=== PATIENT | male | born 1970 | race African-American/Black ===

== ENCOUNTER 2018-09-28 10:18 | Emergency (ER) | payer BC ==
[~2018-09-28] VITALS: Ht 170.2 cm; Wt 75.0 kg
[2018-09-28 12:12] VITALS: BP 131/86
== END 2018-09-28 12:13 | disposition home or self-care (01) ==
LOC: ER 11:52
DX: L73.9 Follicular disorder, unspecified (principal); F12.10 Cannabis abuse, uncomplicated; F17.200 Nicotine dependence, unspecified, uncomplicated
CPT/HCPCS: 99283

== ENCOUNTER 2019-08-31 12:48 | Emergency (ER) | payer BC ==
[~2019-08-31] VITALS: Ht 165.1 cm; Wt 60.0 kg
[2019-08-31] MEDS ORDERED: ONDANSETRON HCL 4MG/2ML INJ IV ONE (17:00)
[2019-08-31] MEDS ORDERED: MORPHINE SULFATE 4 MG/ML CPJ (NOT FOR IM USE) IV ONE (17:00)
[2019-08-31 17:26] LABS: BASOPHILS % 1.2 % (0.0-2.0); EOSINOPHILS % 0.7 % (0.0-5.0); HEMATOCRIT. 42.7 % (42.0-52.0); HEMOGLOBIN. 14.7 g/dL (14.0-18.0); LYMPHOCYTES % 31.1 % (20.0-50.0); MEAN CORPUSCULAR HEMOGLOBIN 31.4 pg (28.0-32.0); MEAN CORPUSCULAR VOLUME 91.2 fL (80.0-94.0); MONOCYTES % 8.2 % (2.0-8.0); NEUTROPHILS % 58.8 % (40.0-76.0); PLATELET 449 x1000/uL (130-400); RED BLOOD CELL COUNT 4.69 mill/uL (4.7-6.1); RED CELL DISTRIBUTION WIDTH 13.5 % (11.6-14.6)
[2019-08-31 17:35] LABS: CHLORIDE 107 mEq/L (98-107)
[2019-08-31] MEDS ORDERED: GADOBENATE DIMEGLUMINE 529 MG/ML 10ML IV ONE (18:45)
[2019-08-31] MEDS ORDERED: KETOROLAC 15MG/ML VIAL IV ONE (18:45)
[2019-08-31] MEDS ORDERED: ONDANSETRON HCL 4MG/2ML INJ IV NR (20:30)
[2019-08-31] MEDS ORDERED: MORPHINE SULFATE 4 MG/ML CPJ (NOT FOR IM USE) IV NR (20:30)
[2019-08-31] MEDS ORDERED: DEXAMETHASONE 10 MG/ML VIAL IV NR (20:30)
[2019-08-31 21:40] VITALS: BP 109/71
== END 2019-08-31 21:41 | disposition home or self-care (01) ==
LOC: ER 12:48
DX: M54.5 Low back pain (principal); F12.10 Cannabis abuse, uncomplicated; Z98.1 Arthrodesis status
CPT/HCPCS: 36415; 72157; 72158; 80053; 85025; 96374; 96375; 96376; 99285; A9577; J1100; J1885; J2270; J2405